=== PATIENT | female | born 2000 | race Caucasian/White ===

== ENCOUNTER 2021-07-04 15:50 | Emergency (ER) | payer OTHER ==
[~2021-07-04] VITALS: Ht 167.6 cm; Wt 76.0 kg
[2021-07-04 15:53] VITALS: BP 146/93
== END 2021-07-04 16:37 | disposition home or self-care (01) ==
LOC: ED 16:05
DX: Z20.822 Contact with and (suspected) exposure to COVID-19 (principal)
CPT/HCPCS: 99283; U0003; U0005